=== PATIENT | female | born 1965 | race Caucasian/White ===

== ENCOUNTER 2024-02-19 05:58 | Day surgery (SDC) | payer BC ==
[2024-02-18 09:21] VITALS: BMI 18.8
[2024-02-19] MEDS ORDERED: Sevoflurane 250 ML INH ANEST BOTTLE ONE (06:54)
[2024-02-19] MEDS ORDERED: Propofol 1,000 MG/100 ML VIAL IV ONE (06:54)
[2024-02-19] MEDS ORDERED: EPINEPHrine 1 MG/ML VIAL ONE (08:02)
[2024-02-19] MEDS ORDERED: fentaNYL 50 mcg/mL 1 mL Vial ONE ×2 (08:06)
[2024-02-19] MEDS ORDERED: Midazolam HCl 2 mg/2 ml Vial ONE (08:06)
[2024-02-19] MEDS ORDERED: PROPOFOL 20 ML ONE (08:35)
[2024-02-19] MEDS ORDERED: Acetaminophen 650 MG/20.3 ML UDCUP ONE (09:11)
== END 2024-02-19 10:25 | disposition home or self-care (01) ==
LOC: CSHSDC 05:58
PROVIDERS: ATTEND Otolaryngology Plastic Surgery within the Head & Neck
PROC: 0CBT8ZZ Excision of Right Vocal Cord, Via Natural or Artificial Opening Endoscopic (ICD-10-PCS; principal; 2024-02-19)
DX: J38.3 Other diseases of vocal cords (principal); J30.89 Other allergic rhinitis; J30.1 Allergic rhinitis due to pollen; J30.2 Other seasonal allergic rhinitis; K21.9 Gastro-esophageal reflux disease without esophagitis; H61.21 Impacted cerumen, right ear; Z90.710 Acquired absence of both cervix and uterus; Z88.5 Allergy status to narcotic agent; Z88.8 Allergy status to other drugs, medicaments and biological substances; Z79.899 Other long term (current) drug therapy
CPT/HCPCS: 88305; 88312; J0171; J2250; J2704; J3010